=== PATIENT | male | born 1990 | race Hispanic/Latino ===

== ENCOUNTER → 2017-10-23 | Outpatient (CLI) | payer OTHER ==
--- NOTE | 2017-10-23 11:22 | Diagnostic Imaging Report ---
Exam: Right footCT without contrast. History: Trauma. Foot pain. Contusion. Decreased range of motion. Comparison:None Technique: Utilizing a 64-slice multidetector CT, axial imaging was performed through the right foot without IV contrast. Multiplanar reformation was performed. Findings: There is no acute fracture, dislocation or avascular necrosis. Mild scattered degenerative changes are seen. There is a small posterior calcaneal bone spur. No talar dome osteochondral lesion. No radiopaque foreign body. Mild soft tissue swelling most pronounced about the first toe. Impression: There is no acute fracture, dislocation or avascular necrosis. Mild soft tissue swelling most pronounced about the first toe. Signed by: Dr. Stanley Cortez M.D. on 10/23/2017 11:18 AM
== END ==
LOC: CT 10:16
PROVIDERS: ATTEND Family Medicine
DX: S90.31XA Contusion of right foot, initial encounter (principal)